=== PATIENT | female | born 1995 | race Caucasian/White ===

== ENCOUNTER 2020-11-03 02:52 | Emergency (ER) | payer OTHER | END 2020-11-03 03:22 | disposition home or self-care (01) | LOC: ERS 02:52 | DX: S63.287A Dislocation of proximal interphalangeal joint of left little finger, initial encounter (principal); W22.8XXA Striking against or struck by other objects, initial encounter | CPT/HCPCS: 26770 ==

== ENCOUNTER 2020-11-09 10:37 | Outpatient (CLI) | payer OTHER | END 2020-11-09 10:38 | disposition home or self-care (01) | LOC: TBSIIMAG 10:37 | PROVIDERS: ATTEND Orthopaedic Surgery | DX: M23.92 Unspecified internal derangement of left knee (principal) ==